=== PATIENT | male | born 1945 | race Caucasian/White ===

== ENCOUNTER 2016-07-02 10:49 | Emergency (ER) | payer BC, MEDICARE, OTHER ==
[~2016-07-02] VITALS: Ht 167.6 cm; Wt 72.0 kg
[~2016-07-02 10:49] MED LIST: ASPI-664 PO; ATOR80TA75 PO; CITA10TA84 PO; COMBIG5 LEFT EYE; FLUT16SP17 NASAL; GABA300C16 PO; GLU5XL PO; IBUP-1542 PO; LATA2.5D9 LEFT EYE; LEVO175T6 PO; METF500T3 PO; NAPR-260 PO; OMEP20CA16 PO; PIOG1TAB PO; TAMS0.4C2 PO
[2016-07-02 10:51] VITALS: Ht 167.6 cm; Wt 72.0 kg
[2016-07-02] MEDS ORDERED: ASCO500C7 PO (11:06)
[2016-07-02] MEDS ORDERED: DONE10TA7 PO (11:07)
[2016-07-02] MEDS ORDERED: MULTI PO (11:07)
[2016-07-02] MEDS ORDERED: FINA5TAB4 PO (11:08)
--- NOTE | 2016-07-02 11:08 | ERA ---
ER Documentation Chief Complaint Date/Time DATE: 07/02/16 TIME: 11:07 Chief Complaint FALL YESTERDAY C/O VOMITING BEFORE THE FALL AND AFTER HPI The patient is a 71-year-old male, presenting to the ER because he had a mechanical fall yesterday after vomiting. He claimed that he hit the head against the dining table. The ambulance came but he did not want to go to the ER. He was visited by his therapist today who brought him to the ER because of vomiting when she came to visit him. He denies headache, syncope, near syncope , neck pain, chest pain, dyspnea, abdominal pain, dysuria, diarrhea. He does not smoke nor drink Past medical history: Dyslipidemia, hypothyroidism, diabetes mellitus, hypertension, essential tremor, BPH Past surgical history: Cataract, right knee arthroscopy ROS All systems reviewed and are negative except as per history of present illness. Medications Home Meds Active Scripts Ondansetron (Ondansetron Odt) 4 Mg Tab.rapdis, 4 MG PO Q6H Y for NAUSEA AND/OR VOMITING, #10 TAB Prov:ADRIAN AYALA MD 07/02/16 Reported Medications Latanoprost (Xalatan) 2.5 Ml Drops, 1 DROP BOTH EYES QHS, #1 BOTTLE 07/02/16 Mometasone Furoate* (Nasonex*) 50 Mcg/[place] - 17 Gm [place].pump, 1 SPRAY NASAL BID, #1 BOTTLE IN EACH NOSTRIL 07/02/16 Carbidopa-Levodopa* (Sinemet*) 25-100 Mg Tab, 2 TAB PO TID, TAB 07/02/16 Duloxetine Hcl* (Duloxetine Hcl*) 30 Mg Capsule.dr, 30 MG PO DAILY, #30 CAP 07/02/16 Losartan Potassium* (Losartan Potassium*) 25 Mg Tablet, 25 MG PO DAILY, TAB 07/02/16 Levothyroxine Sodium* (Levothyroxine Sodium*) 200 Mcg Tablet, 200 MCG PO BEFORE BREAKFAST, #30 TAB 07/02/16 Mirabegron (Myrbetriq) 50 Mg Tab.er.24h, 50 MG PO DAILY, TAB 07/02/16 Metformin Hcl* (Metformin Hcl*) 850 Mg Tablet, 850 MG PO WITH MEALS, #30 TAB 07/02/16 Finasteride* (Finasteride*) 5 Mg Tablet, 5 MG PO DAILY, TAB 07/02/16 Multivitamins* (Theragran*) 1 Tab Tab, 1 TAB PO DAILY, TAB 07/02/16 Donepezil* (Aricept*) 10 Mg Tablet, 10 MG PO DAILY, TAB 07/02/16 Ascorbic Acid* (Vitamin C*) 500 Mg Capsule.sa, 500 MG PO DAILY, CAP 07/02/16 Aspirin* (Aspirin* (EC)) 81 Mg Tablet.dr, 81 MG PO DAILY, TAB 11/20/14 Omeprazole* (Omeprazole*) 20 Mg Capsule.dr, 20 MG PO DAILY, CAP 11/20/14 Tamsulosin Hcl* (Tamsulosin Hcl*) 0.4 Mg Cap.er.24h, 0.4 MG PO HS, CAP 11/20/14 Atorvastatin* (Atorvastatin*) 80 Mg Tablet, 80 MG PO HS, TAB 11/20/14 Brimonidine/Timolol* (Combigan*) 5 Ml Drops, 1 DROP LEFT EYE DAILY, BOTTLE 11/20/14 Discontinued Reported Medications Gabapentin* (Gabapentin*) 300 Mg Capsule, 300 MG PO QHS, CAP 11/20/14 Ibuprofen* (Ibuprofen*) 600 Mg Tablet, 600 MG PO Q8 Y for PAIN, TAB 11/20/14 Naproxen* (Naprosyn*) 500 Mg Tablet, 500 MG PO BID, TAB 11/20/14 Fluticasone Propionate* (Fluticasone Propionate* Nasal) 50 Mcg/[place] - 16 Gm [place].susp, 1 SPRAY NASAL BID, EA TO EACH NOSTRIL 11/20/14 Citalopram Hydrobromide* (Citalopram Hydrobromide*) 10 Mg Tablet, 10 MG PO DAILY , TAB 11/20/14 Levothyroxine Sodium* (Levothyroxine Sodium*) 175 Mcg Tablet, 175 MCG PO AC BREAKFAST, TAB 11/20/14 Latanoprost (Xalatan) 2.5 Ml Drops, 2.5 ML LEFT EYE DAILY 11/20/14 Metformin Hcl* (Metformin Hcl* ER) 500 Mg Tab.sr.24h, 500 MG PO DAILY, TAB 11/20/14 Glipizide XL* (Glipizide XL*) 5 Mg Tabsr, 5 MG PO BID, TAB 11/20/14 Pioglitazone Hcl-Metformin Hcl (Pioglitazone Hcl-Metformin Hcl) 15-500 Mg Tablet , 1 TAB PO DAILY, TAB 11/20/14 Allergies Allergies: Coded Allergies: ciprofloxacin (Verified Allergy, Unknown, rash, 11/20/14) clarithromycin (Verified Allergy, Unknown, 11/20/14) PMhx/Soc History of Surgery: Yes (cataract, R TKR) Anesthesia Reaction: No Hx Neurological Disorder: No Hx Respiratory Disorders: No Hx Cardiac Disorders: No Hx Psychiatric Problems: Yes (MENTALLY CHALLENGED (PER SISTER IN LAW)) Hx Miscellaneous Medical Probl: Yes (DM, HTN, possible parkinson's) Hx Alcohol Use: No Hx Substance Use: No Hx Tobacco Use: No Physical Exam Vitals Vital Signs Date Time Temp Pulse Resp B/P Pulse Ox O2 Delivery O2 Flow Rate FiO2 07/02/16 14:02 69 18 156/75 99 Room Air 07/02/16 10:51 98.1 71 18 114/58 96 Physical Exam Const: No acute distress. Head: Atraumatic. Eyes: Normal Conjunctiva. ENT: Normal External Ears, Nose and Mouth. Neck: Full range of motion. No meningismus. Resp: Clear to auscultation bilaterally. Cardio: Regular rate and rhythm, systolic murmurs. Abd: Soft, non distended, normal bowel sounds, non tender. Skin: No petechiae or rashes. Back: No midline or flank tenderness. Ext: No cyanosis, or edema. Neur: Awake and alert. No focal deficit Psych: Normal Mood and Affect. Result Diagram: 07/02/16 1130 07/02/16 1130 Results 24 hrs Laboratory Tests Test 07/02/16 11:30 07/02/16 13:12 White Blood Count 8.410^3/ul Red Blood Count 3.5110^6/ul Hemoglobin 10.7g/dl Hematocrit 33.8% Mean Corpuscular Volume 96.3fl Mean Corpuscular Hemoglobin 30.5pg Mean Corpuscular Hemoglobin Concent 31.7g/dl Red Cell Distribution Width 13.6% Platelet Count 50538^3/UL Mean Platelet Volume 9.8fl Neutrophils % 75.8% Lymphocytes % 14.7% Monocytes % 7.8% Eosinophils % 0.7% Basophils % 0.5% Nucleated Red Blood Cells % 0.0/100WBC Neutrophils # 6.310^3/ul Lymphocytes # 1.210^3/ul Monocytes # 0.710^3/ul Eosinophils # 0.110^3/ul Basophils # 0.010^3/ul Nucleated Red Blood Cells # 0.010^3/ul Sodium Level 139mmol/L Potassium Level 3.8mmol/L Chloride Level 103mmol/L Carbon Dioxide Level 30mmol/L Anion Gap 10 Blood Urea Nitrogen 16mg/dl Creatinine 0.54mg/dl Glucose Level 186mg/dl Calcium Level 8.6mg/dl Total Bilirubin 0.3mg/dl Direct Bilirubin 0.00mg/dl Indirect Bilirubin 0.3mg/dl Aspartate Amino Transf (AST/SGOT) 23IU/L Alanine Aminotransferase (ALT/SGPT) 16IU/L Alkaline Phosphatase 60IU/L Troponin I < 0.012ng/ml Total Protein 6.1g/dl Albumin 3.3g/dl Globulin 2.80g/dl Albumin/Globulin Ratio 1.17 Lipase 127U/L Bedside Urine pH (LAB) 5.5 Bedside Urine Protein (LAB) Trace Bedside Urine Glucose (UA) Negative Bedside Urine Ketones (LAB) Trace Bedside Urine Blood Negative Bedside Urine Nitrite (LAB) Negative Bedside Urine Leukocyte Esterase (L Negative Current Medications Medications (Trade) Dose Ordered Sig/Yany Route PRN Reason Start Time Stop Time Status Last Admin Dose Admin Sodium Chloride (NS) 500 ml @ 500 mls/hr Q1H ONCE IV 07/02/16 12:30 07/02/16 13:29 DC 07/02/16 12:31 Procedures/[place] [id number] Radiology Main Line: [phone] DIAGNOSTIC IMAGING REPORT Patient: SHERRILL WATKINS : 1945 Age: 71 Sex: M MR #: [id number] DOS: 07/02/16 1116 Ordering MD: ADRIAN AYALA MD Location: E/R Room/Bed: PROCEDURE: XR 1 view Chest. CLINICAL INDICATION: Syncope. TECHNIQUE: Portable Single frontal view of the chest was obtained. COMPARISON: November 20, 2014. FINDINGS: There is mild cardiomegaly. There are mild aortic calcifications. The lungs are hypoaerated. There is no focal consolidation. There is no pleural effusion. No pneumothorax is identified. The osseous structures are intact.There are mild degenerative changes within the thoracic spine. IMPRESSION: No significant change. No evidence for acute cardiopulmonary disease. Mild cardiomegaly with aortic calcifications. Further findings as detailed above. RPTAT: PP .Pierre Lee MD, Date Time Electronically viewed and signed by .Pierre Lee MD, MD on 07/02/2016 12:10 .F/ CC: ADRIAN AYALA MD [place] [id number] Radiology Main Line: [phone] DIAGNOSTIC IMAGING REPORT Patient: SHERRILL WATKINS : 1945 Age: 71 Sex: M MR #: [id number] DOS: 07/02/16 1255 Ordering MD: ADRIAN AYALA MD Location: E/R Room/Bed: PROCEDURE: Noncontrast CT Head. CLINICAL INDICATION: Status post fall. Trauma. TECHNIQUE: Noncontrast CT of the head was obtained. The administered radiation dose was CTDI vol = 44.84 mGy, DLP = 720.23 mGy-cm. One or more of the following dose reduction techniques were used: Automated exposure control, Adjustment of the mA and/or kV according to patient size, or Use of iterative reconstruction technique. COMPARISON: Noncontrast CT of the head from November 20, 2014. FINDINGS: There is minimal generalized cerebral volume loss. There is progressive mild to moderate periventricular hypoattenuation suggesting chronic microvascular ischemic changes. There are mild to moderate vascular calcifications within the intracranial carotid arteries. There is no loss of cobb-white differentiation to suggest acute territorial infarction. There is no acute intracranial hemorrhage or extra-axial fluid collection. There is no mass effect. No midline shift is identified. The patient is status post right lens surgery. There is moderate left and minimal right ethmoid sinus mucosal thickening. 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 No destructive osseous lesion is identified. IMPRESSION: 1. No acute intracranial hemorrhage or extra-axial fluid collection. 2. Stable minimal generalized cerebral volume loss. 3. Progressive mild to moderate chronic microvascular ischemic changes. Further findings as detailed above. RPTAT: PP .Pierre Lee MD, MD Date Time Electronically viewed and signed by .Pierre Lee MD, MD on 07/02/2016 13:37 .F/ CC: ADRIAN AYALA MD EKG: Read by emergency physician Rate/Rhythm: Normal Sinus Rhythm 86 beats/min QRS, ST, T-waves: No ST elevation, no T inversion, LAD, LVH Impression: Abnormal EKG MEDICAL MAKING DECISION: The patient is a 71-year-old male, presenting with acute dehydration and status post mechanical fall. He was treated with normal saline 500 mL IV with good response. The differential diagnoses considered include but are not limited to central causes such as cerebellar infarct, cerebellar hemorrhage, cerebellar tumor, acoustic neuroma, peripheral causes such as benign positional vertigo, labyrinthitis, medication, Meniere's disease. Departure Diagnosis: Primary Impression: Dehydration Additional Impressions: Fall with no significant injury Anemia Condition: Good Comments He was discharged with Zofran I discussed the findings with the patient. I advised the patient to follow-up with the primary physician in about 1-2 days, sooner if needed and return if any concern. ADRIAN AYALA MD Jul 02, 2016 11:08
[2016-07-02] MEDS ORDERED: METF850T PO (11:09)
[2016-07-02] MEDS ORDERED: MIRA50TA PO (11:09)
[2016-07-02] MEDS ORDERED: LOSA25TA5 PO (11:10)
[2016-07-02] MEDS ORDERED: DULO30CA47 PO (11:10)
[2016-07-02] MEDS ORDERED: LEVO200T6 PO (11:10)
[2016-07-02] MEDS ORDERED: SIN25100 PO (11:11)
[2016-07-02] MEDS ORDERED: NASO17 NASAL (11:12)
[2016-07-02] MEDS ORDERED: LATA2.5D9 BOTH EYES (11:13)
[2016-07-02 11:45] LABS: ADD SCAN DIFF NO
[2016-07-02 11:48] LABS: BASOPHILS % 0.5 % (0.0-2.0); EOSINOPHILS # 0.1 10^3/ul (0.0-0.5); EOSINOPHILS % 0.7 % (0.0-7.0); HEMATOCRIT 33.8 % (42.0-52.0); HEMOGLOBIN 10.7 g/dl (14.0-18.0); LYMPHOCYTES # 1.2 10^3/ul (0.8-2.9); LYMPHOCYTES % 14.7 % (15.0-51.0); MEAN CORPUSCULAR HEMOGLOBIN 30.5 pg (29.0-33.0); MEAN CORPUSCULAR HGB CONC 31.7 g/dl (32.0-37.0); MEAN CORPUSCULAR VOLUME 96.3 fl (82.0-101.0); MEAN PLATELET VOLUME 9.8 fl (7.4-10.4); MONOCYTE # 0.7 10^3/ul (0.3-0.9); MONOCYTES % 7.8 % (0.0-11.0); NEUTROPHIL # 6.3 10^3/ul (1.6-7.5); NEUTROPHILS % 75.8 % (39.0-77.0); PLATELET COUNT 197 10^3/UL (140-415); RED BLOOD COUNT 3.51 10^6/ul (4.70-6.10); RED CELL DISTRIBUTION WIDTH 13.6 % (11.5-14.5); WHITE BLOOD COUNT 8.4 10^3/ul (4.8-10.8)
[2016-07-02 12:00] LABS: ALANINE AMINOTRANSFERASE 16 IU/L (13-69); ALBUMIN 3.3 g/dl (3.3-4.9); ALBUMIN/GLOBULIN RATIO 1.17; ALKALINE PHOSPHATASE 60 IU/L (42-121); ANION GAP 10 (8-16); ASPARTATE AMINO TRANSFERASE 23 IU/L (15-46); BILIRUBIN,INDIRECT 0.3 mg/dl (0-1.1); BILIRUBIN,TOTAL 0.3 mg/dl (0.2-1.3); BLOOD UREA NITROGEN 16 mg/dl (7-20); CALCIUM 8.6 mg/dl (8.4-10.2); CARBON DIOXIDE 30 mmol/L (21-31); CHLORIDE 103 mmol/L (97-110); CREATININE 0.54 mg/dl (0.61-1.24); GLUCOSE 186 mg/dl (70-220); POTASSIUM 3.8 mmol/L (3.5-5.1); SODIUM 139 mmol/L (135-144); TOTAL PROTEIN 6.1 g/dl (6.1-8.1)
--- NOTE | 2016-07-02 12:11 | RADRPT ---
PROCEDURE: XR 1 view Chest. CLINICAL INDICATION: Syncope. TECHNIQUE: Portable Single frontal view of the chest was obtained. COMPARISON: November 20, 2014. FINDINGS: There is mild cardiomegaly. There are mild aortic calcifications. The lungs are hypoaerated. There is no focal consolidation. There is no pleural effusion. No pneumothorax is identified. The osseous structures are intact.There are mild degenerative changes within the thoracic spine. IMPRESSION: No significant change. No evidence for acute cardiopulmonary disease. Mild cardiomegaly with aortic calcifications. Further findings as detailed above. RPTAT: PP .Pierre Lee MD, Date Time Electronically viewed and signed by .Pierre Lee MD, on 07/02/2016 12:10 .F/
[2016-07-02 12:21] LABS: TROPONIN-I < 0.012 ng/ml (0.00-0.12)
[2016-07-02] MEDS ORDERED: SOD CHLORIDE 0.9% 500 ML IV ONE (12:30)
[2016-07-02 13:12] LABS: URINE BLOOD (Dip) POC Negative (NEGATIVE)
--- NOTE | 2016-07-02 13:37 | RADRPT ---
PROCEDURE: Noncontrast CT Head. CLINICAL INDICATION: Status post fall. Trauma. TECHNIQUE: Noncontrast CT of the head was obtained. The administered radiation dose was CTDI vol = 44.84 mGy, DLP = 720.23 mGy-cm. One or more of the following dose reduction techniques were used: Au tomated exposure control, Adjustment of the mA and/or kV according to patient size, or Use of iterat bhavik reconstruction technique. COMPARISON: Noncontrast CT of the head from November 20, 2014. FINDINGS: There is minimal generalized cerebral volume loss. There is progressive mild to moderate periventricular hypoattenuation suggesting chronic microvascul ar ischemic changes. There are mild to moderate vascular calcifications within the intracranial car otid arteries. There is no loss of cobb-white differentiation to suggest acute territorial infarction. There is no acute intracranial hemorrhage or extra-axial fluid collection. There is no mass effect. No midline shift is identified. The patient is status post right lens surgery. There is moderate left and minimal right ethmoid sinus mucosal thickening. There is a 6 mm right fr ontal sinus osteoma. No destructive osseous lesion is identified. IMPRESSION: 1. No acute intracranial hemorrhage or extra-axial fluid collection. 2. Stable minimal generalized cerebral volume loss. 3. Progressive mild to moderate chronic microvascular ischemic changes. Further findings as detailed above. RPTAT: PP .Pierre Lee MD, Date Time Electronically viewed and signed by .Pierre Lee MD, on 07/02/2016 13:37 .F/
[2016-07-02] MEDS ORDERED: ONDA4TAB14 PO (13:47)
[2016-07-02 14:02] VITALS: BP 156/75; PULSE 69; RESP 18
== END 2016-07-02 14:02 | disposition home or self-care (01) ==
LOC: E/R 10:49
DX: E86.0 Dehydration (principal); D64.9 Anemia, unspecified; E03.9 Hypothyroidism, unspecified; E11.9 Type 2 diabetes mellitus without complications; I10 Essential (primary) hypertension; G93.89 Other specified disorders of brain; Z79.84 Long term (current) use of oral hypoglycemic drugs; Z79.82 Long term (current) use of aspirin; Z04.3 Encounter for examination and observation following other accident
CPT/HCPCS: 70450; 71010; 80053; 81003; 83690; 84484; 85025; 93005; J7040; 36415; 96360